=== PATIENT | male | born 1955 | race African-American/Black ===

== ENCOUNTER 2022-02-14 16:00 | Inpatient (IN) | payer OTHER ==
[2022-02-14 17:38] VITALS: BMI 27.3
[2022-02-14] MEDS ORDERED: BISMUTH SUBSALICYLATE 524 MG/30 ML PO PRN (18:12)
[2022-02-14] MEDS ORDERED: MAGNESIUM CITRATE 300 ML BOTTLE PO PRN (18:12)
[2022-02-14] MEDS ORDERED: BENZOCAINE/MENTHOL (CHLORASEPTIC ) LOZENGE MM PRN (18:12)
[2022-02-14] MEDS ORDERED: MAGNESIUM HYDROX 2400MG/30ML ORAL SUSPENSION 30 ML CUP PO PRN (18:12)
[2022-02-14] MEDS ORDERED: DICYCLOMINE HCL 10 MG CAPSULE PO PRN (18:12)
[2022-02-14] MEDS ORDERED: LOPERAMIDE HCL 2 MG CAPSULE PO PRN (18:12)
[2022-02-14] MEDS ORDERED: ACETAMINOPHEN 325 MG TABLET (FP) PO PRN ×2 (18:12)
[2022-02-14] MEDS ORDERED: ONDANSETRON *ODT* 4 MG TABLET SL PRN (18:12)
[2022-02-14] MEDS ORDERED: IBUPROFEN 400 MG TABLET (FP) PO PRN (18:12)
[2022-02-14] MEDS ORDERED: cloNIDine HCL 0.1 MG TABLET PO PRN (18:12)
[2022-02-14] MEDS ORDERED: MAG HYDROX/AL HYDROX/SIMETH 30 ML UNIT-DOSE CUP PO PRN (18:12)
[2022-02-14] MEDS: amLODIPine BESYLATE 10 MG TABLET (FP) PO SCH (19:41)
[2022-02-14] MEDS: IBUPROFEN 600 MG TABLET (FP) PO PRN (19:43)
[2022-02-14] MEDS: NICOTINE 14 MG/24 HOURS TOPICAL PATCH TD SCH (19:46)
[2022-02-14] MEDS ORDERED: methaDONE HCL 10 MG TABLET (FOR DETOX USE ONLY) PO ONE (20:00)
[2022-02-14] MEDS: METHOCARBAMOL 500 MG TABLET PO PRN (22:14)
[2022-02-14] MEDS: MELATONIN 5 MG TABLETS PO SCH (22:14)
[2022-02-14] MEDS: MONTELUKAST NA 10 MG TABLET PO SCH (22:14)
[2022-02-14] MEDS: THIAMINE HCL 100 MG TABLET (FP) PO SCH (22:14)
[2022-02-14] MEDS: hydrOXYzine PAMOATE 25 MG CAPSULE (FP) PO SCH (22:14)
[2022-02-14] MEDS: ALBUTEROL SO4 HFA INHALER IH PRN (22:15)
[2022-02-15] MEDS: hydrOXYzine PAMOATE 25 MG CAPSULE (FP) PO SCH ×5 (05:51→22:54)
[2022-02-15] MEDS ORDERED: methaDONE HCL 10 MG TABLET (FOR DETOX USE ONLY) ONE (09:49)
[2022-02-15 10:00] LABS: CALCIUM 8.8 mg/dL (8.5-10.1)
[2022-02-15 10:01] LABS: ALBUMIN 3.3 g/dl (3.4-5.0); BLOOD UREA NITROGEN 9.9 mg/dL (7-18); HEMATOCRIT 40.4 % (35.4-49); HEMOGLOBIN 13.4 GM/dL (11.7-16.9); MCH 28.5 pg (25.7-33.7); MEAN CELL VOLUME 86.2 fl (80-96); MEAN PLT VOLUME 8.8 fl (7.5-11.1); PLATELET COUNT 209 10^3/uL (134-434); RBC 4.69 M/mm3 (4.00-5.60); RDW 13.7 % (11.9-15.9); WHITE BLOOD COUNT 6.8 K/mm3 (4.0-10.0)
[2022-02-15 10:04] LABS: CREATININE 0.7 mg/dL (0.55-1.3)
[2022-02-15 10:05] LABS: TOT PROT 6.3 g/dl (6.4-8.2)
[2022-02-15 10:06] LABS: BILIRUBIN,TOTAL 0.4 mg/dL (0.2-1)
[2022-02-15] MEDS: amLODIPine BESYLATE 10 MG TABLET (FP) PO SCH (10:18)
[2022-02-15] MEDS: NICOTINE 14 MG/24 HOURS TOPICAL PATCH TD SCH (10:19)
[2022-02-15] MEDS: PRENATAL VITAMINS W/ FOLIC ACID TABLET (FP) PO SCH (10:19)
[2022-02-15] MEDS: THIAMINE HCL 100 MG TABLET (FP) PO SCH (22:54)
[2022-02-15] MEDS: IPRATROPIUM/ALBUTEROL (COMBIVENT) RESPIMAT 20-100 MCG IH SCH (22:55)
[2022-02-15] MEDS: MONTELUKAST NA 10 MG TABLET PO SCH (22:55)
[2022-02-16] MEDS: hydrOXYzine PAMOATE 25 MG CAPSULE (FP) PO SCH ×5 (06:16→22:35)
[2022-02-16] MEDS ORDERED: methaDONE HCL 10 MG TABLET (FOR DETOX USE ONLY) PO ONE (10:00)
[2022-02-16] MEDS: IPRATROPIUM/ALBUTEROL (COMBIVENT) RESPIMAT 20-100 MCG IH SCH ×2 (10:48→22:34)
[2022-02-16] MEDS: amLODIPine BESYLATE 10 MG TABLET (FP) PO SCH (10:48)
[2022-02-16] MEDS: PRENATAL VITAMINS W/ FOLIC ACID TABLET (FP) PO SCH (10:48)
[2022-02-16] MEDS: NICOTINE 14 MG/24 HOURS TOPICAL PATCH TD SCH (10:49)
[2022-02-16] MEDS: IBUPROFEN 600 MG TABLET (FP) PO PRN (10:51)
[2022-02-16] MEDS: HYDROCHLOROTHIAZIDE 12.5 MG CAPSULE (FP) PO SCH (10:51)
[2022-02-16] MEDS: ALBUTEROL SO4 HFA INHALER IH PRN (10:51)
[2022-02-16] MEDS: MELATONIN 5 MG TABLETS PO SCH ×2 (21:39→22:35)
[2022-02-16] MEDS: MONTELUKAST NA 10 MG TABLET PO SCH (22:35)
[2022-02-16] MEDS: THIAMINE HCL 100 MG TABLET (FP) PO SCH (22:35)
[2022-02-17] MEDS: hydrOXYzine PAMOATE 25 MG CAPSULE (FP) PO SCH ×5 (05:49→23:15)
[2022-02-17] MEDS ORDERED: methaDONE HCL 10 MG TABLET (FOR DETOX USE ONLY) ONE (09:25)
[2022-02-17] MEDS: IPRATROPIUM/ALBUTEROL (COMBIVENT) RESPIMAT 20-100 MCG IH SCH ×2 (10:16→23:15)
[2022-02-17] MEDS: METHOCARBAMOL 500 MG TABLET PO PRN (10:17)
[2022-02-17] MEDS: amLODIPine BESYLATE 10 MG TABLET (FP) PO SCH (10:17)
[2022-02-17] MEDS: HYDROCHLOROTHIAZIDE 12.5 MG CAPSULE (FP) PO SCH ×2 (10:17→17:27)
[2022-02-17] MEDS: IBUPROFEN 600 MG TABLET (FP) PO PRN (10:18)
[2022-02-17] MEDS: PRENATAL VITAMINS W/ FOLIC ACID TABLET (FP) PO SCH (10:19)
[2022-02-17] MEDS: NICOTINE 14 MG/24 HOURS TOPICAL PATCH TD SCH (10:20)
[2022-02-17] MEDS: MONTELUKAST NA 10 MG TABLET PO SCH (23:15)
[2022-02-17] MEDS: THIAMINE HCL 100 MG TABLET (FP) PO SCH (23:15)
[2022-02-17] MEDS: MELATONIN 5 MG TABLETS PO SCH (23:16)
[2022-02-18] MEDS: hydrOXYzine PAMOATE 25 MG CAPSULE (FP) PO SCH ×5 (06:08→22:36)
[2022-02-18] MEDS ORDERED: methaDONE HCL 10 MG TABLET (FOR DETOX USE ONLY) PO ONE (10:00)
[2022-02-18] MEDS: IPRATROPIUM/ALBUTEROL (COMBIVENT) RESPIMAT 20-100 MCG IH SCH ×2 (10:21→22:37)
[2022-02-18] MEDS: amLODIPine BESYLATE 10 MG TABLET (FP) PO SCH (10:22)
[2022-02-18] MEDS: HYDROCHLOROTHIAZIDE 12.5 MG CAPSULE (FP) PO SCH ×2 (10:22→17:57)
[2022-02-18] MEDS: PRENATAL VITAMINS W/ FOLIC ACID TABLET (FP) PO SCH (10:22)
[2022-02-18] MEDS: METHOCARBAMOL 500 MG TABLET PO PRN ×2 (10:22→22:36)
[2022-02-18] MEDS: IBUPROFEN 600 MG TABLET (FP) PO PRN (10:23)
[2022-02-18] MEDS: NICOTINE 14 MG/24 HOURS TOPICAL PATCH TD SCH (10:28)
[2022-02-18] MEDS ORDERED: LOSARTAN POTASSIUM 25 MG TABLET PO ONE (12:18)
[2022-02-18] MEDS: MELATONIN 5 MG TABLETS PO SCH (22:36)
[2022-02-18] MEDS: THIAMINE HCL 100 MG TABLET (FP) PO SCH (22:36)
[2022-02-18] MEDS: MONTELUKAST NA 10 MG TABLET PO SCH (22:36)
[2022-02-19] MEDS: hydrOXYzine PAMOATE 25 MG CAPSULE (FP) PO SCH ×2 (05:54→10:11)
[2022-02-19] MEDS: ALBUTEROL SO4 HFA INHALER IH PRN (08:57)
[2022-02-19 09:55] VITALS: BP 143/77; PULSE 103; TEMP 97.5
[2022-02-19] MEDS: IPRATROPIUM/ALBUTEROL (COMBIVENT) RESPIMAT 20-100 MCG IH SCH (10:10)
[2022-02-19] MEDS: HYDROCHLOROTHIAZIDE 12.5 MG CAPSULE (FP) PO SCH (10:10)
[2022-02-19] MEDS: PRENATAL VITAMINS W/ FOLIC ACID TABLET (FP) PO SCH (10:10)
[2022-02-19] MEDS: amLODIPine BESYLATE 10 MG TABLET (FP) PO SCH (10:10)
[2022-02-19] MEDS: NICOTINE 14 MG/24 HOURS TOPICAL PATCH TD SCH (10:10)
== END 2022-02-19 11:50 | disposition other institution (70) | DRG 773 ==
LOC: YASAS 16:00 → Y6N 18:24
PROVIDERS: ADMIT Allergy & Immunology; ATTEND Surgery
PROC: HZ2ZZZZ Detoxification Services for Substance Abuse Treatment (ICD-10-PCS; principal; 2022-02-14)
DX: F11.23 Opioid dependence with withdrawal (principal); F12.20 Cannabis dependence, uncomplicated; F17.210 Nicotine dependence, cigarettes, uncomplicated; F32.A Depression, unspecified; I10 Essential (primary) hypertension; Z96.641 Presence of right artificial hip joint; Z96.652 Presence of left artificial knee joint; Z99.89 Dependence on other enabling machines and devices; Z88.8 Allergy status to other drugs, medicaments and biological substances
CPT/HCPCS: 36415; 80053; 85027; 86780; C9803-CS; J0735; J3535; U0003; U0005